=== PATIENT | female | born 1985 | race Caucasian/White ===

== ENCOUNTER 2023-05-24 21:58 | Emergency (ER) | payer SELFPAY ==
[~2023-05-24] VITALS: Ht 154.9 cm; Wt 67.0 kg
[2023-05-24 22:18] VITALS: TEMP 98.1; O2SAT 100
[2023-05-24 23:00] VITALS: BP 112/60; PULSE 76; RESP 18
[2023-05-24] MEDS: KETOROLAC 30MG/ML VIAL IM ONE (23:00)
[2023-05-24] MEDS: SODIUM CHLORIDE 0.9% 1,000 ML IV ONE (23:30)
[2023-05-24] MEDS: METOCLOPRAMIDE HCL 10MG/2ML VIAL IV ONE (23:54)
[2023-05-25] MEDS ORDERED: NAPR500T7 MT (01:16)
== END 2023-05-25 03:32 | disposition home or self-care (01) ==
LOC: ER 21:58
DX: R51.9 Headache, unspecified (principal); E11.9 Type 2 diabetes mellitus without complications
CPT/HCPCS: 81025; 96361; 96372; 96374; 99284; J1885; J2765; J7030; Z7610 ×2